=== PATIENT | female | born 1970 | race Caucasian/White ===

== ENCOUNTER → 2019-07-11 09:08 | Outpatient (CLI) | payer BC ==
--- NOTE | 2019-07-13 09:45 | ST ---
PATIENT:MORENO ROGERS MEDICAL RECORD: [id number] SEX: F LOCATION:[facility] ORDER #: ADMISSION DATE: 07/11/19 AGE OF PATIENT: 48 REFERRING PHYSICIAN: INTERPRETING PHYSICIAN: RAMIRO SNOW MD DATE OF SERVICE: 07/11/2019 PROCEDURE: Nuclear stress test. INDICATION: Chest pain, palpitations, shortness of breath. She was exercised on standard Artis protocol for 10 minutes achieving 85% max target heart rate response with 33 mCi of sestamibi injected at peak stress, 11 mCi used previously for rest images. FINDINGS: Gated SPECT reveals preserved ejection fraction at 69% with good wall motion and thickening and brightening throughout all segments. SPECT imaging Cardiolite was used as myocardial fusion agent. There is homogeneous uptake throughout all segments at rest and stress with no evidence of inducible ischemia or previous infarction. OVERALL IMPRESSION: 1. This is a normal nuclear stress test with no evidence of inducible ischemia or previous infarction. 2. Gated SPECT reveals a preserved ejection fraction at 69%. In this patient with ongoing symptomatology, the current scan does not suggest the presence of hemodynamically significant coronary artery disease. Evaluate noncardiac etiology of chest pain. TRANSINT:[id number] Voice Confirmation ID: [id number] DOCUMENT ID: [id number] RAMIRO SNOW MD at 0945 CC: CURRY CHATMAN [id number] DICTATION DATE: 07/12/19 1029 PEOPLE MANAGER: 07/13/19 0044 DEP CLI 07/11/19 [place] [id number] [place] [id number]
--- NOTE | 2019-07-14 12:59 | EC ---
PATIENT:MORENO ROGERS DATE OF SERVICE: 07/11/19 SEX: F MEDICAL RECORD: [id number] DATE OF : 74 LOCATION:D[facility] AGE OF PATIENT: 48 ADMISSION DATE: 07/11/19 REFERRING PHYSICIAN: INTERPRETING PHYSICIAN: LEANN CASTELLON MD ECHOCARDIOGRAM REPORT ECHO CHARGES 4 ECHO COMPLETE Date: 07/11/19 CLINICAL DIAGNOSIS: PALPITATIONS/DYSPNEA/PAC'S/ PVC'S/MVP/MR/HYPOTENSION ECHOCARDIOGRAPHIC MEASUREMENTS (adult normal given) AC root (d.<3.7cm) 3.0 cm LV Septum d (<1.2 cm> 0.7 cm Valve Excursion 1.8 cm LV Septum (systole) 1.1 cm Left Atria (s.<4.0cm> 3.0 cm LVPW d(<1.2cm) 0.9 cm RV (d.<2.3cm) 1.9 cm LVPW (sytole) 1.4 cm LV diastole(<5.6CM) 4.1 cm MV E-F(>70mm/sec) cm LV systole 2.4 cm LVOT Diameter 1.9 cm MV exc.(>10mm) cm Est.ejection fraction (50-75%) % DOPPLER: LVIT cm/sec A 34.0 cm/sec E 97.0 cm/sec LA cm/sec RVSP 29.0 mmHg LVOT 84.0 cm/sec AOP1/2T m/s Asc. Ao 107 cm/sec RVOT 54.0 cm/sec RA cm/sec PA 69.0 cm/sec AV Gradient Peak 4.5 mmHg AV Mean 2.4 mmHg AV Area 2.3 cm MV Gradient Peak 5.3 mmHg MV Mean 1.5 mmHg MV Area cm COMMENTS: OP - HC Bowling Ball Molder: 1 JANA JACKSONOE Recruitment Officer: 3 Dr. Tolliver TAPE# PACS Pericardial Effusion N DATE OF SERVICE: Adequate 2D, color flow, spectral Doppler, and M-mode. No LVH. LV internal dimension is normal. Wall motion is normal. EF is greater than or equal to 55%. Aortic valve is tricuspid. No evidence of stenosis by Doppler interrogation. Left atrium is normal. Mitral valve appears normal. Trivial MR. Right-sided chambers are grossly normal. Mild TR. TRANSINT:[id number] Voice Confirmation ID: [id number] DOCUMENT ID: [id number] ECHOCARDIOGRAM REPORT [id number] MORENO ROGERS,LEANN Hudson MD at 1259 CC: [id number] DICTATION DATE: 07/13/19 1311 EDITOR IN CHIEF NEWSPAPER: 07/13/19 1322 DEP CLI 07/11/19 [place] [id number] [place] [id number]
== END | disposition home or self-care (01) ==
LOC: D.HCCECHO 09:08
PROVIDERS: ATTEND Internal Medicine Interventional Cardiology
DX: I34.0 Nonrheumatic mitral (valve) insufficiency (principal); Z03.89 Encounter for observation for other suspected diseases and conditions ruled out

== ENCOUNTER 2021-01-23 10:24 | Emergency (ER) | payer BC ==
[~2021-01-23] VITALS: Ht 162.6 cm; Wt 55.5 kg
[2021-01-23 10:28] VITALS: BP 105/72; Ht 162.6 cm; Wt 55.5 kg
[2021-01-23] MEDS ORDERED: KLONOPIN0.5 MG PO (10:33)
[2021-01-23] MEDS ORDERED: LEXAPRO5 MG PO (10:34)
[2021-01-23] MEDS ORDERED: VALTREX1000 MG PO (10:34)
[2021-01-23 11:17] LABS: BASOPHILS 0.2 % (0-2); EOSINOPHILS 0.3 % (0-7); HEMOGLOBIN 13.3 g/dL (12-16); IMMATURE GRANULOCYTES 0.2 % (0-5); LYMPHOCYTE ABS# 1.12 10x3/uL (1.18-3.74); LYMPHOCYTES 18.4 % (15-50); MCH 31.7 pg (26.0-34.0); MCHC 33.3 g/dL (31.0-37.0); MCV 95.5 fL (80.0-100.0); MEAN PLATELET VOLUME 10.2 fL (7.4-10.4); MONOCYTES 6.9 % (2-11); NEUTROPHIL ABS# 4.51 10x3/uL (1.56-6.13); PLATELET COUNT 213 10x3/uL (130-400); RBC 4.19 10x6/uL (4.00-5.40); RDW 12.3 % (11.5-14.5); WBC 6.1 10x3/uL (4.8-10.8)
[2021-01-23 11:27] LABS: APTT 28.8 SECONDS (22.8-39.4); INR 1.12 (0.85-1.17); PROTIME 13.3 SECONDS (11.6-15.0)
[2021-01-23 11:28] LABS: CALC OSMOLALITY 280 mosm/kg (275-300); CALCIUM 9.3 mg/dL (8.5-10.1); CARBON DIOXIDE 27.7 mmol/L (21.0-32.0); CHLORIDE - SERUM 105 mmol/L (98-107); CREATININE - SERUM 0.7 mg/dL (0.6-1.3); GLUCOSE 94 mg/dL (74-106); POTASSIUM - SERUM 3.6 mmol/L (3.5-5.1); SODIUM 141 mmol/L (136-145); UREA NITROGEN 13 mg/dL (7-18); eGFR NON AFRICAN AMERICAN > 90 mL/min (90-120)
[2021-01-23 11:47] LABS: ALBUMIN 3.9 g/dL (3.4-5.0); ALKALINE PHOSPHATASE 69 U/L (30-120); ALT (SGPT) 23 U/L (10-68); CKMB 0.6 U/L (0.0-3.6); CREATINE KINASE 115 UL (21-215); MAGNESIUM - SERUM 2.2 mg/dL (1.8-2.4); PROTEIN - SERUM 7.5 g/dL (6.4-8.2); THYROID STIMULATING HORMONE 0.84 uIU/mL (0.36-3.74); TROPONIN-I < 0.017 ng/mL (0.000-0.060)
[2021-01-23] MEDS ORDERED: BUTALB-APAP-CA1 EACH PO (12:06)
== END 2021-01-23 12:45 | disposition home or self-care (01) ==
LOC: D.ER 10:24
PROVIDERS: Family Medicine
DX: R51.9 Headache, unspecified (principal); M54.2 Cervicalgia; E03.9 Hypothyroidism, unspecified

== ENCOUNTER → 2021-01-25 10:35 | Outpatient (CLI) | payer BC ==
[2021-01-23 10:28] VITALS: BMI 21.0
[~2021-01-25 10:35] MED LIST: BUTALB-APAP-CA1 EACH PO; KLONOPIN0.5 MG PO; LEXAPRO5 MG PO; VALTREX1000 MG PO
--- NOTE | 2021-01-29 14:07 | EC ---
PATIENT:MORENO ROGERS DATE OF SERVICE: 01/25/21 SEX: F MEDICAL RECORD: [id number] DATE OF : 74 LOCATION:D.[facility] AGE OF PATIENT: 50 ADMISSION DATE: 01/25/21 REFERRING PHYSICIAN: INTERPRETING PHYSICIAN: LEANN CASTELLON MD ECHOCARDIOGRAM REPORT ECHO CHARGES 4 ECHO COMPLETE Date: 01/25/21 CLINICAL DIAGNOSIS: PALPITATIONS, ASSESS EF AND MITRAL VALVE ECHOCARDIOGRAPHIC MEASUREMENTS (adult normal given) AC root (d.<3.7cm) 2.8 cm LV Septum d (<1.2 cm> 0.9 cm Valve Excursion 1.5 cm LV Septum (systole) 1.0 cm Left Atria (s.<4.0cm> 3.5 cm LVPW d(<1.2cm) 1.0 cm RV (d.<2.3cm) 3.1 cm LVPW (sytole) 1.1 cm LV diastole(<5.6CM) 4.0 cm MV E-F(>70mm/sec) cm LV systole 2.7 cm LVOT Diameter 1.8 cm MV exc.(>10mm) 2.6 cm Est.ejection fraction (50-75%) % DOPPLER: LVIT cm/sec A 70.0 cm/sec E 94.0 cm/sec LA cm/sec RVSP 31 mmHg LVOT 89 cm/sec AOP1/2T m/s Asc. Ao 103 cm/sec RVOT 59 cm/sec RA cm/sec PA 80 cm/sec AV Gradient Peak 4.25 mmHg AV Mean 2.33 mmHg AV Area 2.4 cm MV Gradient Peak 5.03 mmHg MV Mean 1.55 mmHg MV Area cm COMMENTS: Central Scheduler: 2 OSVALDO ALCOCER Senior Risk Analyst: 3 Dr. Tolliver TAPE# PACS Pericardial Effusion N DATE OF SERVICE: Adequate 2D, color-flow imaging, spectral Doppler, and M-Mode. FINDINGS: No LVH. LV internal dimension is normal. Wall motion is normal. EF is greater than or equal to 55%. Aortic valve is tricuspid. No evidence of stenosis by Doppler interrogation. Left atrium is normal at 3.5 cm. Mitral valve is redundant without prolapse. Mild MR. Right side is grossly normal. Trace TR. TRANSINT:[id number] Voice Confirmation ID: [id number] DOCUMENT ID: [id number] ECHOCARDIOGRAM REPORT [id number] MORENO ROGERS GREGORY A MD at 1407 CC: [id number] DICTATION DATE: 01/25/21 131 SILO OPERATOR: 01/25/21 2306 DEP CLI 01/25/21 [place] [id number] [place] [address]
== END | disposition home or self-care (01) ==
LOC: D.HCCECHO 10:35
PROVIDERS: ATTEND Internal Medicine Interventional Cardiology
DX: R00.2 Palpitations (principal)